=== PATIENT | female | born 1985 | race Caucasian/White ===

== ENCOUNTER 2020-09-22 17:46 | Emergency (ER) | payer OTHER ==
[~2020-09-22] VITALS: Ht 167.6 cm; Wt 145.1 kg
[2020-09-22] MEDS ORDERED: ALBUTEROL/IPRATROPIUM 3 ML NEB NEB ONE (18:30)
[2020-09-22] MEDS ORDERED: DEXAMETHASONE SOD PHOS 10 MG/1 ML VIAL IV ONE (18:30)
[2020-09-22] MEDS ORDERED: ACETAMINOPHEN/CODEINE 300MG - 30MG TAB PO ONE (18:30)
[2020-09-22] MEDS ORDERED: AZITHROMYCIN250 MG PO (19:14)
[2020-09-22] MEDS ORDERED: PREDNISONE50 MG PO (19:14)
== END 2020-09-22 20:21 | disposition home or self-care (01) ==
LOC: ER 18:37
DX: J20.9 Acute bronchitis, unspecified (principal); R05 Cough
CPT/HCPCS: 71045; 93005; 99284; J1100